=== PATIENT | female | born 1955 | race Caucasian/White ===

== ENCOUNTER 2016-12-23 13:10 | Emergency (ER) | payer OTHER ==
[~2016-12-23] VITALS: Ht 170.2 cm; Wt 95.7 kg
[~2016-12-23 13:10] MED LIST: AMLO5 PO; METF-639 PO; METO50TA11 PO
[2016-12-23 13:20] VITALS: BP 180/87; PULSE 86; RESP 16; TEMP 97.7; O2SAT 97
[2016-12-23] MEDS ORDERED: SODIUM CHLORIDE 0.9% FLUSH 10 ML FLUSH IV FLUSH PRN (13:30)
--- NOTE | 2016-12-23 13:32 | PD ---
HPI Chief Complaint: Abdominal Pain Time Seen by Provider: 13:29 Travel History International Travel<30 days: No Contact w/Intl Traveler<30days: No Traveled to known affect area: No History of Present Illness HPI 61-year-old female patient with history of diabetes and hypertension, presents to the ER today with sudden onset right lower quadrant abdominal pains which is intermittent in nature and is a 9 at 10 when he calms. She has been nauseous but denies any diarrhea, fevers, vomiting, or any other symptoms. She does not know exacerbating or alleviating factor. She states this started all of a sudden this afternoon as she was going to go [facility]. Modifying Factors: None Associated Signs & Symptoms: Right lower quadrant abdominal pain Risk Factors: None PFSH Past Medical History Cancer: No Cardiovascular Problems: No Diabetes: Yes Endocrine: No Glaucoma: Yes Genitourinary: No Hepatitis: No Hiatal Hernia: No Hypertension: Yes Immune Disorder: No Musculoskeletal: No Neurologic: Yes (HX OF SEIZURES) Psychiatric: No Reproductive: No Respiratory: No Immunizations Current: Yes Seizures: Yes Thyroid Disease: No Para: 4 Tubal Ligation: Yes Past Surgical History Abdominal Surgery: Yes (CHOLECYSTECTOMY) AICD: No Body Medical Devices: GLAUOCMA Cardiac Surgery: No Cholecystectomy: Yes Ear Surgery: No Endocrine Surgery: No Eye Surgery: Yes (LEFT eye glaucoma SHUNT) Genitourinary Surgery: No Gynecologic Surgery: Yes (D&C, PARTIAL HYSTERECTOMY) Hysterectomy: Yes Joint Replacement: No Oral Surgery: No Pacemaker: No Thoracic Surgery: No Social History Alcohol Use: No Tobacco Use: No Substance Use: No Allergies-Medications (Allergen,Severity, Reaction): Coded Allergies: phenytoin (Unverified Allergy, Severe, "KNOCK ME ON MY BUTT", 12/23/16) Reported Meds & Prescriptions Reported Meds & Active Scripts Active Reported Latanoprost Opth Drops (Latanoprost) 0.005% Drops 1 Drop LEFT EYE HS Refrigerate until opened. Norvasc (Amlodipine Besylate) 5 Mg Tab 5 Mg PO DAILY Metoprolol Succinate ER 24 HR (Metoprolol Succinate) 50 Mg Tab 50 Mg PO DAILY Metformin ER (Metformin HCl) 500 Mg Tab 250 Mg PO BID Review of Systems Except as stated in HPI: all other systems reviewed are Neg Physical Exam Narrative GENERAL: Well-developed elderly female patient currently mild distress. Awake and oriented 3. SKIN: Focused skin assessment warm/dry. HEAD: Atraumatic. Normocephalic. EYES: Pupils equal and round. No scleral icterus. No injection or drainage. ENT: No nasal bleeding or discharge. Mucous membranes pink and moist. NECK: Trachea midline. No JVD. CARDIOVASCULAR: Regular rate and rhythm. No murmur appreciated. RESPIRATORY: No accessory muscle use. Clear to auscultation. Breath sounds equal bilaterally. GASTROINTESTINAL: Abdomen soft, mild right lower quadrant tenderness without guarding or rebound, nondistended. Hepatic and splenic margins not palpable. MUSCULOSKELETAL: No obvious deformities. No clubbing. No cyanosis. No edema. NEUROLOGICAL: Awake and alert. No obvious cranial nerve deficits. Motor grossly within normal limits. Normal speech. PSYCHIATRIC: Appropriate mood and affect; insight and judgment normal. Data Data Last Documented VS Vital Signs Date Time Temp Pulse Resp B/P (MAP) Pulse Ox O2 Delivery O2 Flow Rate FiO2 12/23/16 14:12 20 98 Room Air 12/23/16 13:20 97.7 86 180/87 (118) Orders Orders Complete Blood Count With Diff (12/23/16 13:26) Comprehensive Metabolic Panel (12/23/16 13:26) Lipase (12/23/16 13:26) Urinalysis - C+S If Indicated (12/23/16 13:26) Iv Access Insert/Monitor (12/23/16 13:26) Ecg Monitoring (12/23/16 13:26) Oximetry (12/23/16 13:26) Sodium Chloride 0.9% Flush (Ns Flush) (12/23/16 13:30) Ct Abd/Pel W/O Iv Contrast (12/23/16 13:29) Hydromorphone Pf Inj (Dilaudid Pf Inj) (12/23/16 13:45) Ondansetron Inj (Zofran Inj) (12/23/16 13:45) Labs Laboratory Tests Test 12/23/16 13:40 12/23/16 13:50 Urine Color YELLOW Urine Turbidity CLOUDY Urine pH 7.0 Urine Specific Stanley 1.010 Urine Protein NEG mg/dL Urine Glucose (UA) NEG mg/dL Urine Ketones NEG mg/dL Urine Occult Blood LARGE Urine Nitrite NEG Urine Bilirubin NEG Urine Leukocyte Esterase NEG Urine RBC 100-200 /hpf Urine WBC 3-5 /hpf Urine Squamous Epithelial Cells 0-5 /hpf Microscopic Urinalysis Comment CULT NOT INDICATED White Blood Count 8.5 TH/MM3 Red Blood Count 4.96 MIL/MM3 Hemoglobin 14.4 GM/DL Hematocrit 43.1 % Mean Corpuscular Volume 86.9 FL Mean Corpuscular Hemoglobin 29.1 PG Mean Corpuscular Hemoglobin Concent 33.4 % Red Cell Distribution Width 12.1 % Platelet Count 347 TH/MM3 Mean Platelet Volume 7.8 FL Neutrophils (%) (Auto) 63.5 % Lymphocytes (%) (Auto) 27.7 % Monocytes (%) (Auto) 6.0 % Eosinophils (%) (Auto) 2.4 % Basophils (%) (Auto) 0.4 % Neutrophils # (Auto) 5.4 TH/MM3 Lymphocytes # (Auto) 2.4 TH/MM3 Monocytes # (Auto) 0.5 TH/MM3 Eosinophils # (Auto) 0.2 TH/MM3 Basophils # (Auto) 0.0 TH/MM3 CBC Comment DIFF FINAL Differential Comment Blood Urea Nitrogen 6 MG/DL Creatinine 0.75 MG/DL Random Glucose 191 MG/DL Total Protein 7.9 GM/DL Albumin 3.7 GM/DL Calcium Level 9.2 MG/DL Alkaline Phosphatase 95 U/L Aspartate Amino Transf (AST/SGOT) 80 U/L Alanine Aminotransferase (ALT/SGPT) 104 U/L Total Bilirubin 0.6 MG/DL Sodium Level 138 MEQ/L Potassium Level 3.9 MEQ/L Chloride Level 103 MEQ/L Carbon Dioxide Level 28.2 MEQ/L Anion Gap 7 MEQ/L Estimat Glomerular Filtration Rate 79 ML/MIN Lipase 182 U/L [facility] Medical Decision Making Medical Screen Exam Complete: Yes Emergency Medical Condition: Yes Medical Record Reviewed: Yes Interpretation(s) Laboratory Tests Test 12/23/16 13:40 12/23/16 13:50 Urine Turbidity CLOUDY (CLEAR) Urine Occult Blood LARGE (NEG) Urine RBC 100-200 /hpf (0-3) Blood Urea Nitrogen 6 MG/DL (7-18) Random Glucose 191 MG/DL (74-106) Aspartate Amino Transf (AST/SGOT) 80 U/L (15-37) Alanine Aminotransferase (ALT/SGPT) 104 U/L (10-53) Estimat Glomerular Filtration Rate 79 ML/MIN (>89) Differential Diagnosis Right lower quadrant abdominal pains: Renal colic versus muscular versus UTI versus other acute intra-abdominal processes Narrative Course Lab work shows blood in the urine and CAT scan shows a 4 mm stone in the distal third of the ureter. At this point, my plan would be to give her symptomatically relief for pain and have her follow-up with urology and strain urine. Return for any worsening in pain or new symptoms as needed. The plan has been discussed with her and she states understanding. Diagnosis Primary Impression: Renal colic on right side Med/Other Pt SpecificInfo: Prescription(s) given Scripts Hydrocodone-Acetaminophen (Lortab) 5-325 Mg Tab 1 TAB PO Q6H Y for PAIN, #15 TAB 0 Refills Prov: Josseline Galindo MD 12/23/16 Ibuprofen (Motrin Ib) 200 Mg Tablet 600 MG PO QID Y for PAIN SCALE 1 TO 10, #28 Prov: Josseline Galindo MD 12/23/16 Disposition: 01 DISCHARGE HOME Condition: Stable Josseline Galindo MD Dec 23, 2016 13:32
[2016-12-23] MEDS ORDERED: ONDANSETRON HCL 4 MG/2 ML VIAL IV PUSH ONE (13:45)
[2016-12-23] MEDS ORDERED: HYDROmorphone HCL PF 1 MG/ML VIAL IV PUSH ONE (13:45)
[2016-12-23 13:47] LABS: BLOOD, URINE LARGE (NEG); GLUCOSE,URINE NEG (NEG); KETONE, URINE NEG (NEG); NITRITE,URINE NEG (NEG)
[2016-12-23 13:58] LABS: URINE COLOR YELLOW (YELLW/STRAW)
[2016-12-23 13:59] LABS: COMMENT (UR) CULT NOT INDICATED; CULTURE IF INDICATED CULT NOT INDICATED; RBC, URINE 100-200 /hpf (0-3); SQUAMOUS EPITHELIAL CELL URINE 0-5 /hpf (0-5)
[2016-12-23 14:01] LABS: AUTOMATED NEUTROPHIL # 5.4 TH/MM3 (1.8-7.7); BASOPHIL % 0.4 % (0.0-2.0); EOSINOPHIL # 0.2 TH/MM3 (0-0.4); EOSINOPHIL % 2.4 % (0.0-4.0); HEMATOCRIT 43.1 % (35.0-46.0); HEMO FLAGS DIFF FINAL; LYMPH % 27.7 % (9.0-44.0); LYMPHOCYTE # 2.4 TH/MM3 (1.0-4.8); MEAN CELL VOLUME 86.9 FL (80.0-100.0); MEAN CORPUSCULAR HEMOGLOBIN 29.1 PG (27.0-34.0); MEAN CORPUSCULAR HGB CONC 33.4 % (32.0-36.0); NEUT % 63.5 % (16.0-70.0); PLATELET COUNT 347 TH/MM3 (150-450); RED BLOOD COUNT 4.96 MIL/MM3 (4.00-5.30); RED CELL DISTRIBUTION WIDTH 12.1 % (11.6-17.2); WHITE BLOOD COUNT 8.5 TH/MM3 (4.0-11.0)
[2016-12-23] MEDS ORDERED: LATA0.002 LEFT EYE (14:06)
[2016-12-23 14:10] LABS: CHLORIDE 103 MEQ/L (98-107); POTASSIUM 3.9 MEQ/L (3.5-5.1); SODIUM (NA) 138 MEQ/L (136-145)
[2016-12-23 14:12] VITALS: RESP 20; O2SAT 98
[2016-12-23 14:14] LABS: ANION GAP 7 MEQ/L (5-15); BICARBONATE 28.2 MEQ/L (21.0-32.0); BLOOD UREA NITROGEN 6 MG/DL (7-18)
[2016-12-23 14:16] LABS: ALT (GPT) 104 U/L (10-53); AST (GOT) 80 U/L (15-37)
[2016-12-23 14:17] LABS: GLOMERULAR FILTRATION RATE 79 ML/MIN (>89)
[2016-12-23 14:18] LABS: TOTAL BILIRUBIN ADULT 0.6 MG/DL (0.2-1.0)
[2016-12-23 14:19] LABS: ALKALINE PHOSPHATASE 95 U/L (45-117)
--- NOTE | 2016-12-23 14:22 | RADRPT ---
EXAM DATE/TIME: 12/23/2016 14:05 [place] COMPARISON: No previous studies available for comparison. INDICATIONS : Right sided abdominal pain. Evaluate for calculi. ORAL CONTRAST: No oral contrast ingested. RADIATION DOSE: 24.58 CTDIvol (mGy) MEDICAL HISTORY : Seizures. SURGICAL HISTORY : Cholecystectomy. Hysterectomy. ENCOUNTER: Initial ACUITY: 1 day PAIN SCALE: 3/10 LOCATION: Right abdomen TECHNIQUE: Volumetric scanning of the abdomen and pelvis was performed. Using automated exposure control and ad justment of the mA and/or kV according to patient size, radiation dose was kept as low as reasonably achievable to obtain optimal diagnostic quality images. DICOM format image data is available electro nically for review and comparison. FINDINGS: TECHNIQUE: Volumetric scanning of the upper abdomen and pelvis was performed using the very low-dose technique a utomated exposure control and adjustment of the mA and/or kV according to patient size, radiation dos e was kept as low as reasonably achievable to obtain optimal diagnostic quality images. DICOM format image data is available electronically for review and comparison. FINDINGS: LOWER LUNGS: The visualized lower lungs are clear. UPPER ABDOMEN: There is mild fatty replacement to the liver. Spleen, pancreas and adrenals are unremarkable. Gallb ladder clips are seen in the gallbladder fossa. RIGHT KIDNEY: There is mild prominence to the right collecting system with triangle shaped 4 mm calcification proba alba in distal right ureter. LEFT KIDNEY: Normal in size and shape. There is no mass, stone, or hydronephrosis. ADRENAL GLANDS: Within normal limits. BOWEL/MESENTERY: There is no retroperitoneal or mesenteric adenopathy. The region of the cecum and terminal ileum are unremarkable. PELVIS CONTENTS: Multiple phlebolith are evident. There is no adnexal mass. INGUINAL: There is no lymphadenopathy or hernia. MUSCULOSKELETAL: Within normal limits for patient age. CONCLUSION: 4 mm calcification on the right probably distal third right ureter without significant perinephric st randing. There is mild dilatation of the right ureter. There are no residual calcifications another kidney. Favio Schwartz MD FACR on December 23, 2016 at 14:15 Board Certified Radiologist. This report was verified electronically.
[2016-12-23] MEDS ORDERED: IBUP-1129 PO (14:30)
[2016-12-23] MEDS ORDERED: HYDR-3533 PO (14:30)
[2016-12-23 14:36] VITALS: BP 144/75; PULSE 66; RESP 16; O2SAT 98
[2016-12-23] MEDS ORDERED: TRAV0.00 LEFT EYE (14:36)
== END 2016-12-23 14:59 | disposition home or self-care (01) ==
LOC: PHED 13:10
DX: N20.1 Calculus of ureter (principal); R11.0 Nausea; E11.9 Type 2 diabetes mellitus without complications; I10 Essential (primary) hypertension; Z79.84 Long term (current) use of oral hypoglycemic drugs; Z86.69 Personal history of other diseases of the nervous system and sense organs
CPT/HCPCS: 74176; 80053; 81001; 83690; 85025; 96374; 96375; 99285; J1170; J2405